=== PATIENT | male | born 1985 | race African-American/Black ===

== ENCOUNTER 2024-09-15 15:19 | Emergency (ER) | payer SELFPAY ==
[2024-09-15 15:23] VITALS: BP 157/78; PULSE 110; RESP 16; TEMP 36.6; O2SAT 100
--- NOTE | 2024-09-15 16:08 | ED.MALEGU ---
HPI - Male Genitourinary General Chief complaint: Urogenital-Male Stated complaint: s/s STI Time Seen by Provider: 09/15/24 15:44 Source: patient Mode of arrival: ambulatory Limitations: no limitations History of Present Illness HPI Narrative: This is a 38 year old male that presents to the ER for STD testing/treatment. Reports his partner told him that she tested positive for syphilis. He does report he lad a lesion on his penis one month ago. Otherwise has no complaints. Denies dysuria, abnormal drainage, current rash. Related Data Allergies Allergy/AdvReac Type Severity Reaction Status Date / Time No Known Allergies Allergy Verified 09/15/24 15:28 Review of Systems Review of Systems: CONSTITUTIONAL: Denies fever GENITOURINARY: Denies dysuria or hematuria. SKIN: Denies current rash All systems reviewed & are unremarkable except as noted in HPI and below PMFSH Past Medical History Medical History (Updated 09/15/24 @ 19:11 by Valeria Steiner PA-C) No active medical problems Social History Social History (Updated 09/15/24 @ 16:24 by Valeria Steiner PA-C) Substance use: never Exam Narrative: GENERAL: Well-appearing, well-nourished, and in no acute distress. HEAD: Normocephalic, atraumatic. EYES: EOMI. CHEST: No respiratory distress. HEART: Regular rate EXTREMITIES: Normal range of motion. No edema. SKIN: Warm, dry, no rash. NEURO: No focal deficits. Alert and oriented x3. PSYCH: Normal mood and affect Course Vital Signs Vital signs: Vital Signs Temperature 97.9 F 09/15/24 15:23 Pulse Rate 110 H 09/15/24 15:23 Respiratory Rate 16 09/15/24 15:23 Blood Pressure 157/78 H 09/15/24 15:23 Pulse Oximetry 100 09/15/24 15:23 Oxygen Delivery Room Air 09/15/24 15:23 Temperature 97.9 F 09/15/24 15:23 Pulse Rate 110 H 09/15/24 15:23 Respiratory Rate 16 09/15/24 15:23 Blood Pressure 157/78 H 09/15/24 15:23 Pulse Oximetry 100 09/15/24 15:23 Oxygen Delivery Room Air 09/15/24 15:23 MDM - Male Genitourinary MDM Narrative Medical decision making narrative: Patient presents to the emergency department for positive syphilis contact. Requesting testing and treatment. Urine without evidence of infection. Chlamydia, gonorrhea and Trichomonas tests are negative. Patient was presumptively treated for early syphilis with him reporting a lesion on his penis 1 month ago and a positive test in his partner. He was instructed to have further follow-up with his primary provider. He was given warnings to return to the ER Differential Diagnosis Differential diagnosis: Likely urinary tract infection, urethritis and other (Syphilis, chlamydia, gonorrhea, Trichomonas) Lab Data Attestation: I reviewed the patient's lab results. Labs: Lab Results 09/15/24 Range/Units 16:27 Urine Color Yellow (Yellow) Urine Appearance Clear (Clear) Urine pH 6.5 (5.0-9.0) Ur Specific [place] 1.025 (1.001-1.035) Urine Protein Trace (Negative) mg/dL Urine Glucose (UA) Negative (Negative) mg/dL Urine Ketones Trace H (Negative) mg/dL Ur Blood (Man) Negative (Negative) Urine Nitrate Negative (Negative) Urine Bilirubin Negative (Negative) Urine Urobilinogen 1.0 (<2.0) mg/dL Leukocyte Esterase Rfl Negative (Negative) ARVIND/UL Urine RBC 0-2 (0-2) /hpf Urine WBC 0-5 (0-3) /hpf Ur Squamous Epith Cells None seen (Few) /hpf Urine Bacteria None seen /hpf Urine Casts 0-2 C. trachomatis (PCR) Not detected (NOT DETECTE) N. gonorrhoeae (PCR) Not detected (NOT DETECTE) T. vaginalis (PCR) Not detected (NOT DETECTE) Critical Care Time Critical Care Time Critical Care Time: No Discharge Plan Discharge Clinical Impression: Syphilis contact Patient Disposition: Home, Self-Care Condition: Stable Instructions: Sexually Transmitted Diseases (ED) Additional Instructions: Return to the emergency department if you experience fever, chest pain, shortness of breath, abdominal pain with nausea and vomiting, or any other symptoms that are concerning to you. You were treated today for Syphilis. Your chlamydia, gonorrhea and trichomonas tests were negative Follow up with your primary care doctor Patient Language: [place] Follow-up/Referrals: PHYSICIAN NOT ON STAFF,NONSTAFF [Primary Care Provider] -
[2024-09-15 16:45] LABS: Add Urine Microscopic? YES; Appearance Urine Clear (Clear); Bacteria Urine None Seen /hpf; Bilirubin Urine Negative (Negative); Blood Urine Negative (Negative); Color Urine Yellow (Yellow); Glucose Urine UA Negative (Negative); Ketones Urine Trace mg/dL (Negative); Leukocyte Esterase Ur Negative LEU/UL (Negative); Nitrate Urine Negative (Negative); Non Pathogenic Casts 0-2; Protein Urine Trace mg/dL (Negative); RBC Urine 0-2 /hpf (0-2); Specific Grav Ur 1.025 (1.001-1.035); Squamous Epithelial Cell Urine None Seen /hpf (Few); WBC Urine 0-5 /hpf (0-3); pH Urine 6.5 (5.0-9.0)
[2024-09-15 17:47] LABS: Trichomonas Vag PCR NOT DETECTED (NOT DETECTE)
[2024-09-15 18:10] LABS: Chlamydia trachomatis NOT DETECTED (NOT DETECTE); Neisseria gonorrhoeae PCR NOT DETECTED (NOT DETECTE)
[2024-09-15] MEDS: PENICILLIN G BENZATHINE 2,400,000 UNITS/4 ML SYRINGE 2400000 UNITS IM (18:54)
[2024-09-15 19:20] VITALS: PULSE 97; RESP 15; O2SAT 99
[2024-09-15 20:14] LABS: Syphilis IgG/IgM Antibody Reactive (Negative)
== END 2024-09-15 19:22 | disposition home or self-care (01) ==
PROVIDERS: Emergency Provider Physician Assistant
DX: Z20.2 Contact with and (suspected) exposure to infections with a predominantly sexual mode of transmission (principal)
CPT/HCPCS: 36415; 81001; 86593; 87491; 87591; 87661; 96372; 99283; J0561